=== PATIENT | female | born 1990 | race Caucasian/White ===

== ENCOUNTER 2019-05-13 10:40 | Outpatient (CLI) | payer OTHER ==
[~2019-05-13] VITALS: Ht 165.1 cm; Wt 93.6 kg
[2019-05-13 11:22] LABS: MICROSCOPIC NOT IND
[2019-05-13 11:28] LABS: CREATININE,URINE RANDOM 62.7 mg/dL
[2019-05-13 11:33] LABS: BASOPHILS # (AUTO) 0.03 x10^3/uL (0-0.1); BASOPHILS % (AUTO) 0 % (0-1); EOSINOPHILS # (AUTO) 0.07 x10^3/uL (0-0.4); EOSINOPHILS % (AUTO) 1 % (1-7); LYMPHOCYTES # (AUTO) 1.65 x10^3/uL (1-3.4); LYMPHOCYTES % (AUTO) 15 % (22-44); MD NO; MEAN CORPUSCULAR HEMOGLOBIN 31.7 pg (27.0-34.8); MEAN CORPUSCULAR HGB CONC 33.5 g/dL (32.4-35.8); MEAN CORPUSCULAR VOLUME 94.5 fL (80-100); MEAN PLATELET VOLUME 7.8 fL (7.4-10.4); MONOCYTES # (AUTO) 0.52 x10^3/uL (0.2-0.8); MONOCYTES % (AUTO) 5 % (2-9); NEUTROPHILS # (AUTO) 8.62 x10^3/uL (1.8-6.8); NEUTROPHILS % (AUTO) 79 % (42-75); PLATELET COUNT 309 x10^3/uL (130-400); RED CELL DISTRIBUTION WIDTH 12.4 % (9.6-15.2)
[2019-05-13 11:42] LABS: ANION GAP 6 mmol/L (5-15); CALCIUM 8.2 mg/dL (8.5-10.1); CHLORIDE 107 mmol/L (98-107); CREATININE 0.59 mg/dL (0.55-1.02)
[2019-05-13 11:43] LABS: ALANINE AMINOTRANSFERASE 16 U/L (12-78); ALBUMIN 2.7 g/dL (3.4-5.0)
[2019-05-13 11:45] LABS: ALKALINE PHOSPHATASE 62 U/L (45-117); BILIRUBIN,TOTAL 0.2 mg/dL (0.2-1.0); TOTAL PROTEIN 6.4 g/dL (6.4-8.2)
== END 2019-05-13 13:22 | disposition home or self-care (01) ==
LOC: LDOP 10:40
PROVIDERS: ATTEND Student in an Organized Health Care Education/Training Program
DX: O26.90 Pregnancy related conditions, unspecified, unspecified trimester (principal); Z3A.00 Weeks of gestation of pregnancy not specified
CPT/HCPCS: 36415; 59025; 80053; 81003; 82570; 84156; 84550; 85025; 87086; 99201; G0463

== ENCOUNTER 2019-06-07 15:46 | Outpatient (CLI) | payer OTHER ==
[~2019-06-07] VITALS: Ht 165.1 cm; Wt 93.6 kg
[2019-06-07 16:16] LABS: MICROSCOPIC NOT IND
[2019-06-07 16:30] LABS: BASOPHILS # (AUTO) 0.04 x10^3/uL (0-0.1); BASOPHILS % (AUTO) 0 % (0-1); EOSINOPHILS # (AUTO) 0.04 x10^3/uL (0-0.4); EOSINOPHILS % (AUTO) 0 % (1-7); LYMPHOCYTES # (AUTO) 1.75 x10^3/uL (1-3.4); LYMPHOCYTES % (AUTO) 18 % (22-44); MD NO; MEAN CORPUSCULAR HEMOGLOBIN 31.7 pg (27.0-34.8); MEAN CORPUSCULAR HGB CONC 34.1 g/dL (32.4-35.8); MEAN CORPUSCULAR VOLUME 92.9 fL (80-100); MEAN PLATELET VOLUME 8.2 fL (7.4-10.4); MONOCYTES % (AUTO) 6 % (2-9); NEUTROPHILS # (AUTO) 7.32 x10^3/uL (1.8-6.8); NEUTROPHILS % (AUTO) 75 % (42-75); PLATELET COUNT 318 x10^3/uL (130-400); RED BLOOD COUNT 3.87 x10^6/uL (3.82-5.3); RED CELL DISTRIBUTION WIDTH 13.5 % (9.6-15.2)
[2019-06-07 16:38] LABS: ALBUMIN 2.7 g/dL (3.4-5.0); ANION GAP 9 mmol/L (5-15); CALCIUM 8.4 mg/dL (8.5-10.1); CHLORIDE 107 mmol/L (98-107)
[2019-06-07 16:42] LABS: ALANINE AMINOTRANSFERASE 13 U/L (12-78); ALKALINE PHOSPHATASE 85 U/L (45-117); CREATININE 0.52 mg/dL (0.55-1.02); TOTAL PROTEIN 6.8 g/dL (6.4-8.2)
[2019-06-07 16:43] LABS: BILIRUBIN,TOTAL < 0.1 mg/dL (0.2-1.0)
== END 2019-06-07 17:30 | disposition home or self-care (01) ==
LOC: LDOP 15:46
PROVIDERS: ATTEND Obstetrics & Gynecology
DX: O13.3 Gestational [pregnancy-induced] hypertension without significant proteinuria, third trimester (principal); Z3A.33 33 weeks gestation of pregnancy
CPT/HCPCS: 36415; 59025; 80053; 81003; 82570; 83615; 84156; 84550; 85025; 99211; G0463

== ENCOUNTER 2019-06-08 14:50 | Outpatient (CLI) | payer SELFPAY ==
[2019-06-08 16:42] VITALS: BP 140/84
[2019-06-08] MEDS ORDERED: BETAMETHASONE 6 MG/ML, 5ML IM ONE ×2 (17:30→17:33)
[2019-06-08] MEDS ORDERED: PLEASE ENTER WEIGHT MC SCH (18:00)
[2019-06-08] MEDS ORDERED: PLEASE ENTER ALLERGIES MC SCH (18:00)
== END 2019-06-08 17:30 | disposition home or self-care (01) ==
LOC: LDOP 14:50
PROVIDERS: ATTEND Obstetrics & Gynecology
DX: O13.3 Gestational [pregnancy-induced] hypertension without significant proteinuria, third trimester (principal); Z3A.33 33 weeks gestation of pregnancy
CPT/HCPCS: 59025; 96372; 99211; G0463

== ENCOUNTER 2019-06-09 16:12 | Outpatient (CLI) | payer SELFPAY ==
[2019-06-09] MEDS ORDERED: BETAMETHASONE 6 MG/ML, 5ML IM ONE (16:30)
== END 2019-06-09 16:49 | disposition home or self-care (01) ==
LOC: LDOP 16:12
PROVIDERS: ATTEND Obstetrics & Gynecology
DX: O13.3 Gestational [pregnancy-induced] hypertension without significant proteinuria, third trimester (principal); Z3A.33 33 weeks gestation of pregnancy
CPT/HCPCS: 59025; 96372; 99211; J0702; G0463

== ENCOUNTER 2019-06-17 02:26 | Outpatient (CLI) | payer OTHER ==
[~2019-06-17] VITALS: Ht 165.1 cm; Wt 92.3 kg
[2019-06-17 02:43] VITALS: BP 141/88
[2019-06-17 02:55] LABS: MICROSCOPIC INDICATED
[2019-06-17 02:59] LABS: CREATININE,URINE RANDOM 98.1 mg/dL
[2019-06-17 03:14] LABS: BASOPHILS % (AUTO) 1 % (0-1); EOSINOPHILS # (AUTO) 0.04 x10^3/uL (0-0.4); EOSINOPHILS % (AUTO) 0 % (1-7); LYMPHOCYTES # (AUTO) 1.65 x10^3/uL (1-3.4); LYMPHOCYTES % (AUTO) 17 % (22-44); MD NO; MEAN CORPUSCULAR HEMOGLOBIN 31.4 pg (27.0-34.8); MEAN CORPUSCULAR HGB CONC 33.7 g/dL (32.4-35.8); MEAN CORPUSCULAR VOLUME 93.3 fL (80-100); MEAN PLATELET VOLUME 7.8 fL (7.4-10.4); MONOCYTES # (AUTO) 0.61 x10^3/uL (0.2-0.8); MONOCYTES % (AUTO) 6 % (2-9); NEUTROPHILS # (AUTO) 7.61 x10^3/uL (1.8-6.8); NEUTROPHILS % (AUTO) 76 % (42-75); PLATELET COUNT 297 x10^3/uL (130-400); RED BLOOD COUNT 3.73 x10^6/uL (3.82-5.3); RED CELL DISTRIBUTION WIDTH 12.8 % (9.6-15.2)
[2019-06-17 03:30] LABS: ALANINE AMINOTRANSFERASE 12 U/L (12-78); ALBUMIN 2.6 g/dL (3.4-5.0); ANION GAP 7 mmol/L (5-15); CALCIUM 8.4 mg/dL (8.5-10.1); CHLORIDE 108 mmol/L (98-107); CREATININE 0.59 mg/dL (0.55-1.02)
[2019-06-17 03:32] LABS: BILIRUBIN, DIRECT < 0.1 mg/dL (0.1-0.2)
[2019-06-17 03:33] LABS: ALKALINE PHOSPHATASE 81 U/L (45-117); BILIRUBIN,TOTAL 0.4 mg/dL (0.2-1.0); TOTAL PROTEIN 6.4 g/dL (6.4-8.2)
[2019-06-17] MEDS ORDERED: D5%-LACTATED RINGERS 1,000 ML IV SCH ×3 (03:36→06:00)
[2019-06-17] MEDS ORDERED: ONDANSETRON 2MG/ML, 2ML ONE (03:44)
[2019-06-17] MEDS ORDERED: MECLIZINE 25 MG TABLET PO PRN (04:00)
[2019-06-17] MEDS ORDERED: ONDANSETRON 2MG/ML, 2ML IVPush PRN (04:00)
== END 2019-06-17 05:38 | disposition home or self-care (01) ==
LOC: LDOP 02:26 → LDIP 03:46 → UNDOADMOB 03:46 → LDOP 05:38 → UNDODISOB 05:38
PROVIDERS: ATTEND Obstetrics & Gynecology
DX: O99.89 Other specified diseases and conditions complicating pregnancy, childbirth and the puerperium (principal); R42 Dizziness and giddiness; O14.93 Unspecified pre-eclampsia, third trimester; Z3A.35 35 weeks gestation of pregnancy
CPT/HCPCS: 36415; 59025; 80053; 81001; 82248; 82570; 84156; 84550; 85025; 87086; 96361; 96374; 99211; J2405; J7121; 96360; 96376; G0378; G0463

== ENCOUNTER 2019-06-30 05:13 | Inpatient (IN) | payer OTHER ==
[~2019-06-30] VITALS: Ht 165.1 cm; Wt 94.5 kg
[2019-06-30] MEDS ORDERED: LACTATED RINGERS 1,000 ML IV SCH (05:14)
[2019-06-30 05:27] VITALS: BP 142/79
[2019-06-30] MEDS ORDERED: SODIUM CITRATE/CITRIC ACID 30 ML UDC PO ONE (05:30)
[2019-06-30] MEDS ORDERED: PLEASE ENTER HEIGHT AND WEIGHT MC SCH (05:30)
[2019-06-30] MEDS ORDERED: LACTATED RINGERS 1,000 ML IVBOLUS ONE (05:30)
[2019-06-30] MEDS ORDERED: METOCLOPRAMIDE 5 MG/ML, 2ML IV ONE (05:30)
[2019-06-30] MEDS ORDERED: NEWBORN KIT ONE (05:36)
[2019-06-30] MEDS ORDERED: METOCLOPRAMIDE 5 MG/ML, 2ML ONE (05:54)
[2019-06-30] MEDS ORDERED: SODIUM CITRATE/CITRIC ACID 30 ML UDC ONE (05:55)
[2019-06-30] MEDS ORDERED: OXYTOCIN 30U/ 0.9% NaCL 500ML 500 ML ONE (05:55)
[2019-06-30 06:21] LABS: BASOPHILS # (AUTO) 0.01 x10^3/uL (0-0.1); BASOPHILS % (AUTO) 0 % (0-1); EOSINOPHILS # (AUTO) 0.04 x10^3/uL (0-0.4); EOSINOPHILS % (AUTO) 1 % (1-7); LYMPHOCYTES # (AUTO) 1.45 x10^3/uL (1-3.4); LYMPHOCYTES % (AUTO) 17 % (22-44); MD NO; MEAN CORPUSCULAR HEMOGLOBIN 31.4 pg (27.0-34.8); MEAN CORPUSCULAR HGB CONC 33.8 g/dL (32.4-35.8); MEAN CORPUSCULAR VOLUME 92.8 fL (80-100); MEAN PLATELET VOLUME 7.8 fL (7.4-10.4); MONOCYTES # (AUTO) 0.45 x10^3/uL (0.2-0.8); MONOCYTES % (AUTO) 5 % (2-9); NEUTROPHILS # (AUTO) 6.58 x10^3/uL (1.8-6.8); NEUTROPHILS % (AUTO) 77 % (42-75); PLATELET COUNT 235 x10^3/uL (130-400); RED CELL DISTRIBUTION WIDTH 13.9 % (9.6-15.2)
[2019-06-30 06:24] LABS: ALANINE AMINOTRANSFERASE 10 U/L (12-78); ALBUMIN 2.2 g/dL (3.4-5.0); ANION GAP 9 mmol/L (5-15); CALCIUM 8.1 mg/dL (8.5-10.1); CHLORIDE 109 mmol/L (98-107); CREATININE 0.52 mg/dL (0.55-1.02)
[2019-06-30 06:25] LABS: MICROSCOPIC NOT IND
[2019-06-30 06:30] LABS: ALKALINE PHOSPHATASE 81 U/L (45-117); BILIRUBIN,TOTAL 0.2 mg/dL (0.2-1.0); TOTAL PROTEIN 5.6 g/dL (6.4-8.2)
[2019-06-30 06:31] LABS: BILIRUBIN, DIRECT < 0.1 mg/dL (0.1-0.2)
[2019-06-30] MEDS ORDERED: morphine SULFATE/PF 0.5 MG/ML, 10ML ONE (07:05)
[2019-06-30] MEDS ORDERED: EPINEPHRINE 1 MG/ML, 1ML ONE (07:11)
[2019-06-30] MEDS ORDERED: EPHEDRINE 50 MG/ML, 1ML ONE (08:08)
[2019-06-30] MEDS ORDERED: WATER-INJECTION,STERILE 10 ML IV ONE ×2 (08:08)
[2019-06-30] MEDS ORDERED: CEFAZOLIN 1,000 MG ONE (08:08)
[2019-06-30] MEDS ORDERED: ONDANSETRON 2MG/ML, 2ML ONE (08:08)
[2019-06-30] MEDS ORDERED: PHENYLEPHRINE 10 MG/ML ONE (08:08)
[2019-06-30] MEDS ORDERED: OXYTOCIN 10 UNITS/ML, 1ML ONE (08:08)
[2019-06-30] MEDS ORDERED: KETOROLAC 30 MG/1 ML ONE (09:24)
[2019-06-30] MEDS: LACTATED RINGERS 1,000 ML IV SCH ×4 (09:27→19:27)
[2019-06-30] MEDS ORDERED: BISACODYL 10 MG SUPP PR PRN (09:30)
[2019-06-30] MEDS ORDERED: MISOPROSTOL 200 MCG TABLET PR PRN (09:30)
[2019-06-30] MEDS ORDERED: KETOROLAC 30 MG/1 ML IVPush ONE (09:30)
[2019-06-30] MEDS: IBUPROFEN 600 MG TABLET PO SCH ×2 (09:30→21:29)
[2019-06-30] MEDS ORDERED: OXYcodone IR 5MG TABLET PO PRN (09:30)
[2019-06-30] MEDS ORDERED: CALCIUM CARBONATE 500 MG TAB.CHEW PO PRN (09:30)
[2019-06-30] MEDS ORDERED: SIMETHICONE 80 MG CHEW TAB PO PRN (09:30)
[2019-06-30] MEDS ORDERED: MORPHINE SULFATE 4 MG/ML, 1ML IVPush PRN (09:30)
[2019-06-30] MEDS ORDERED: morphine SULFATE 10 MG/ML, 1ML IV PRN (09:30)
[2019-06-30] MEDS: ACETAMINOPHEN 500 MG TABLET PO SCH ×2 (09:30→21:29)
[2019-06-30] MEDS ORDERED: ONDANSETRON 2MG/ML, 2ML IV PRN (09:30)
[2019-06-30] MEDS ORDERED: OXYcodone 5 MG/5 ML ORAL.SOL UDC ONE (09:59)
[2019-06-30] MEDS ORDERED: OXYcodone 5 MG/5 ML ORAL.SOL UDC PO PRN (10:00)
[2019-06-30] MEDS: OXYTOCIN 30U/ 0.9% NaCL 500ML 500 ML IV SCH ×2 (10:02→19:27)
[2019-06-30 10:45] VITALS: BP 110/71
[2019-06-30] MEDS: OXYcodone IR 5MG TABLET PO PRN ×2 (13:57→19:35)
[2019-06-30] MEDS: KETOROLAC 30 MG/1 ML IV SCH ×2 (15:30→21:32)
[2019-06-30 15:55] VITALS: BP 113/72
[2019-06-30 16:30] LABS: BASOPHILS # (AUTO) 0.02 x10^3/uL (0-0.1); BASOPHILS % (AUTO) 0 % (0-1); EOSINOPHILS # (AUTO) 0.01 x10^3/uL (0-0.4); EOSINOPHILS % (AUTO) 0 % (1-7); LYMPHOCYTES # (AUTO) 1.49 x10^3/uL (1-3.4); LYMPHOCYTES % (AUTO) 12 % (22-44); MD NO; MEAN CORPUSCULAR HEMOGLOBIN 31.1 pg (27.0-34.8); MEAN CORPUSCULAR HGB CONC 33.2 g/dL (32.4-35.8); MEAN CORPUSCULAR VOLUME 93.7 fL (80-100); MONOCYTES # (AUTO) 0.51 x10^3/uL (0.2-0.8); MONOCYTES % (AUTO) 4 % (2-9); NEUTROPHILS # (AUTO) 10.15 x10^3/uL (1.8-6.8); NEUTROPHILS % (AUTO) 83 % (42-75); PLATELET COUNT 243 x10^3/uL (130-400); RED BLOOD COUNT 3.62 x10^6/uL (3.82-5.3); RED CELL DISTRIBUTION WIDTH 13.6 % (9.6-15.2)
[2019-06-30 19:30] VITALS: BP 129/80
[2019-06-30] MEDS: DOCUSATE 100 MG CAPSULE PO PRN (19:35)
[2019-06-30 23:45] VITALS: BP 112/72
[2019-07-01] MEDS: LACTATED RINGERS 1,000 ML IV SCH ×4 (01:27→15:11)
[2019-07-01] MEDS: OXYcodone IR 5MG TABLET PO PRN ×4 (02:02→21:25)
[2019-07-01] MEDS: ACETAMINOPHEN 500 MG TABLET PO SCH ×4 (02:03→21:57)
[2019-07-01] MEDS: KETOROLAC 30 MG/1 ML IV SCH ×2 (03:29→09:13)
[2019-07-01] MEDS: IBUPROFEN 600 MG TABLET PO SCH ×4 (03:29→21:57)
[2019-07-01 03:35] VITALS: BP 113/77
[2019-07-01] MEDS: OXYTOCIN 30U/ 0.9% NaCL 500ML 500 ML IV SCH ×2 (05:27→15:11)
[2019-07-01 07:05] VITALS: BP 119/79
[2019-07-01] MEDS ORDERED: KETOROLAC 30 MG/1 ML ONE (09:08)
[2019-07-01] MEDS: DOCUSATE 100 MG CAPSULE PO PRN ×2 (09:13→20:05)
[2019-07-01] MEDS: PRENATAL VIT/IRON/FA 1 EACH TABLET PO SCH (09:14)
[2019-07-01 19:20] VITALS: BP 125/85
[2019-07-02] MEDS: IBUPROFEN 600 MG TABLET PO SCH (04:03)
[2019-07-02] MEDS: ACETAMINOPHEN 500 MG TABLET PO SCH (04:03)
[2019-07-02] MEDS: OXYcodone IR 5MG TABLET PO PRN (04:10)
[2019-07-02 08:00] VITALS: BP 137/77
[2019-07-02] MEDS: PRENATAL VIT/IRON/FA 1 EACH TABLET PO SCH (08:00)
[2019-07-02] MEDS: DOCUSATE 100 MG CAPSULE PO PRN (08:01)
[2019-07-02] MEDS ORDERED: IBUP-1222 PO (10:13)
[2019-07-02] MEDS ORDERED: OXYC-302 PO (10:14)
== END 2019-07-02 12:03 | disposition home or self-care (01) | DRG 785 ==
LOC: LDIP 05:13 → 2NW 10:44
PROVIDERS: ADMIT Obstetrics & Gynecology; ATTEND Obstetrics & Gynecology
PROC: 10D00Z1 Extraction of Products of Conception, Low, Open Approach (ICD-10-PCS; principal; 2019-06-30)
PROC: 0UB70ZZ Excision of Bilateral Fallopian Tubes, Open Approach (ICD-10-PCS; 2019-06-30)
DX: O14.94 Unspecified pre-eclampsia, complicating childbirth (principal); O34.211 Maternal care for low transverse scar from previous cesarean delivery; Z30.2 Encounter for sterilization; Z37.0 Single live birth; Z3A.37 37 weeks gestation of pregnancy
CPT/HCPCS: 36415; 80053; 81003; 82248; 82570; 84156; 84550; 85025; 86592; 86850; 86900; 88302; G0378; J0171; J0690; J1885; J2274; J2405; J2370; J2590; J2765; J7120